=== PATIENT | female | born 1940 | race Caucasian/White ===

== ENCOUNTER 2017-06-09 07:36 | Day surgery (SDC) | payer MEDICARE, OTHER ==
[~2017-06-09 07:36] MED LIST: Cefuroxime 10 MG/ML SYRINGE EYELF SCH; Lidocaine 1% PF 2 ML SDV INJECT SCH; Pilocarpine 4% Ophth Soln 15 ML Bot EYELF SCH
[2017-06-09] MEDS: Polymyxin B/Trimethoprim 10 ML Bottle EYELF SCH ×3 (07:57→10:06)
[2017-06-09] MEDS: Brimonidine 0.2% Ophth Soln 5 ML Bottle EYELF SCH ×3 (08:02→10:06)
[2017-06-09] MEDS: Phenylephrine 2.5% Ophth Soln 2 ML Bot EYELF SCH ×5 (08:07→09:50)
--- NOTE | 2017-06-09 08:16 | PCM.PREANE ---
Preanesthetic Assessment - Anesthesia/Transfusion/Family Hx Anesthesia History: Prior Anesthesia Without Reaction Family History of Anesthesia Reaction: No Transfusion History: No Prior Transfusion(s) Intubation History: Unknown - Review of Systems General: No Symptoms Pulmonary: Shortness of Breath (occas SOB with exertion) Cardiovascular: No Symptoms Gastrointestinal: No Symptoms Neurological: No Symptoms Other: Reports: None - Physical Assessment NPO Status Date: 06/08/17 NPO Status Time: 21:00 Pulse: 54 O2 Sat by Pulse Oximetry: 97 Respiratory Rate: 16 Vital Signs: Last Vital Signs Temp 36.6 C 06/09/17 07:40 Pulse 54 L 06/09/17 07:40 Resp 16 06/09/17 07:40 BP 214/74 H 06/09/17 07:40 Pulse Ox 97 06/09/17 07:40 Height: 1.55 m Weight: 64.41 kg ASA Class: 2 Mental Status: Alert & Oriented x3 Airway Class: Mallampati = 2 Dentition: Reports: Normal Dentition Thyro-Mental Finger Breadths: 3 Mouth Opening Finger Breadths: 3 ROM/Head Extension: Full Lungs: Clear to Auscultation, Normal Respiratory Effort Cardiovascular: Regular Rate, Regular Rhythm - Allergies Allergies/Adverse Reactions: Allergies Allergy/AdvReac Type Severity Reaction Status Date / Time iodine Allergy Rash Verified 06/08/17 13:03 - Acknowledgements Anesthesia Type Planned: MAC Pt an Appropriate Candidate for the Planned Anesthesia: Yes Alternatives and Risks of Anesthesia Discussed w Pt/Guardian: Yes Pt/Guardian Understands and Agrees with Anesthesia Plan: Yes PreAnesthesia Questionnaire HEENT History: Reports: Cataract Cardiovascular History: Reports: High Cholesterol Respiratory History: Reports: SOB (pt states occas SOB with exertion) Gastrointestinal History: Reports: None Genitourinary History: Reports: None Musculoskeletal History: Reports: Osteoarthritis Neurological History: Reports: None Psychiatric History: Reports: Anxiety (untreated) Endocrine/Metabolic History: Reports: Hypothyroidism Hematologic History: Reports: None Immunologic History: Reports: None Oncologic (Cancer) History: Reports: None - Past Surgical History Head Surgeries/Procedures: Reports: None HEENT Surgical History: Reports: None Cardiovascular Surgical History: Reports: None Respiratory Surgical History: Reports: None GI Surgical History: Reports: Appendectomy, Cholecystectomy Female Surgical History: Reports: Hysterectomy Endocrine Surgical History: Reports: None Neurological Surgical History: Reports: None Musculoskeletal Surgical History: Reports: Other (See Below) (foot) Oncologic Surgical History: Reports: None Dermatological Surgical History: Reports: None - SUBSTANCE USE Smoking Status *Q: Former Smoker Recreational Drug Use History: No - HOME MEDS Home Medications: Home Meds Aspirin/Sod Bicarb/Citric Acid [Rizwana-[place] Original] 1 tab PO DAILY 06/08/17 [ History] Fish Oil/[place]-3 Fatty Acids [Fish Oil 1,000 MG] 1 gm PO DAILY 06/08/17 [History ] Levothyroxine [Synthroid] 50 mcg PO DAILY 06/08/17 [History] Lutein 20 mg PO DAILY 06/08/17 [History] Multivitamin [Zoo Chews] 1 tab PO DAILY 06/08/17 [History] - CURRENT (IN HOUSE) MEDS Current Meds: Current Medications Brimonidine Tartrate (Alphagan 0.2% Ophth Soln) 0 ml EYELF ASDIRECTED YOLIE Stop: 06/09/17 18:00 Last Admin: 06/09/17 08:02 Dose: 1 drop Cefuroxime Sodium (Zinacef) 0 mg EYELF ASDIRECTED YOLIE Stop: 06/09/17 18:00 Lidocaine HCl (Xylocaine-Mpf 1%) 10 ml INJECT ASDIRECTED YOLIE Stop: 06/09/17 18:00 Phenylephrine HCl (Omkar-Synephrine 2.5% Ophth Soln) 0 ml EYELF ASDIRECTED YOLIE Stop: 06/09/17 18:00 Last Admin: 06/09/17 08:07 Dose: 1 drop Pilocarpine HCl (Pilocar 4% Ophth Soln) 0 ml EYELF ASDIRECTED YOLIE Stop: 06/09/17 18:00 Polymyxin/Trimethoprim Sulfate (Polytrim Ophth Soln) 0 ml EYELF ASDIRECTED YOLIE Stop: 06/09/17 18:00 Last Admin: 06/09/17 07:57 Dose: 1 drop Tetracaine HCl (Tetracaine 0.5% Steri-Unit Claudine) 0 ml EYELF ASDIRECTED YOLIE Stop: 06/09/17 18:00 Tropicamide (Mydriacyl 1% Ophth Soln) 0 ml EYELF ASDIRECTED YOLIE Stop: 06/09/17 18:00
[2017-06-09] MEDS: Tetracaine HCl/PF 0.5% 4 ML Bottle EYELF SCH ×2 (09:42→09:58)
--- NOTE | 2017-06-09 10:09 | PCM48HPAN ---
Post Anesthesia Note - EVALUATION WITHIN 48HRS OF ANESTHETIC Vital Signs in Normal Range: Yes Patient Participated in Evaluation: Yes Respiratory Function Stable: Yes Airway Patent: Yes Cardiovascular Function Stable: Yes Hydration Status Stable: Yes Pain Control Satisfactory: Yes Nausea and Vomiting Control Satisfactory: Yes Mental Status Recovered: Yes Pulse Rate: 54 SaO2: 96 Resp Rate: 16 Blood Pressure: 187/82
[2017-06-09 10:29] VITALS: BP 184/83
== END 2017-06-09 10:22 | disposition home or self-care (01) ==
LOC: JD.SDS 07:36
PROVIDERS: ATTEND Ophthalmology
DX: H25.813 Combined forms of age-related cataract, bilateral (principal); H40.003 Preglaucoma, unspecified, bilateral; H35.363 Drusen (degenerative) of macula, bilateral; H35.3131 Nonexudative age-related macular degeneration, bilateral, early dry stage; H16.103 Unspecified superficial keratitis, bilateral; H16.223 Keratoconjunctivitis sicca, not specified as Sjogren's, bilateral; I10 Essential (primary) hypertension; M19.90 Unspecified osteoarthritis, unspecified site; E03.9 Hypothyroidism, unspecified; F41.9 Anxiety disorder, unspecified; Z91.041 Radiographic dye allergy status; Z90.49 Acquired absence of other specified parts of digestive tract; Z90.710 Acquired absence of both cervix and uterus; Z87.891 Personal history of nicotine dependence; Z79.82 Long term (current) use of aspirin; Z79.899 Other long term (current) drug therapy
CPT/HCPCS: 66984; C1780; J0697; A9270-GY

== ENCOUNTER 2017-07-07 10:10 | Day surgery (SDC) | payer MEDICARE, OTHER ==
[~2017-07-07 10:10] MED LIST changes: -Cefuroxime 10 MG/ML SYRINGE EYELF SCH; +Cefuroxime 10 MG/ML SYRINGE EYERT SCH; -Pilocarpine 4% Ophth Soln 15 ML Bot EYELF SCH; +Pilocarpine 4% Ophth Soln 15 ML Bot EYERT SCH
[2017-07-07] MEDS: Polymyxin B/Trimethoprim 10 ML Bottle EYERT SCH ×3 (11:15→13:03)
[2017-07-07] MEDS: Brimonidine 0.2% Ophth Soln 5 ML Bottle EYERT SCH ×3 (11:20→13:03)
[2017-07-07] MEDS: Phenylephrine 2.5% Ophth Soln 2 ML Bot EYERT SCH ×5 (11:27→12:44)
--- NOTE | 2017-07-07 11:43 | PCM.PREANE ---
Preanesthetic Assessment - Anesthesia/Transfusion/Family Hx Anesthesia History: Prior Anesthesia Without Reaction Family History of Anesthesia Reaction: No Transfusion History: No Prior Transfusion(s) Intubation History: Unknown - Review of Systems General: No Symptoms Pulmonary: No Symptoms Cardiovascular: No Symptoms Gastrointestinal: No Symptoms Neurological: No Symptoms Other: Reports: Thyroid Problems (hypothyroidism) - Physical Assessment NPO Status Date: 07/06/17 NPO Status Time: 19:00 Pulse: 59 O2 Sat by Pulse Oximetry: 95 Respiratory Rate: 16 Vital Signs: Last Vital Signs Temp 36.7 C 07/07/17 11:03 Pulse 59 L 07/07/17 11:03 Resp 16 07/07/17 11:03 BP 209/77 H 07/07/17 11:03 Pulse Ox 95 07/07/17 11:03 Height: 1.55 m Weight: 66.678 kg ASA Class: 2 Mental Status: Alert & Oriented x3 Airway Class: Mallampati = 2 Dentition: Reports: Normal Dentition Thyro-Mental Finger Breadths: 3 ROM/Head Extension: Full Lungs: Clear to Auscultation, Normal Respiratory Effort Cardiovascular: Regular Rate, Regular Rhythm - Allergies Allergies/Adverse Reactions: Allergies Allergy/AdvReac Type Severity Reaction Status Date / Time iodine Allergy Rash Verified 07/06/17 13:48 - Blood Blood Available: No Product(s) Available: None - Anesthesia Plan Pre-Op Medication Ordered: None - Acknowledgements Anesthesia Type Planned: MAC Pt an Appropriate Candidate for the Planned Anesthesia: Yes Alternatives and Risks of Anesthesia Discussed w Pt/Guardian: Yes Pt/Guardian Understands and Agrees with Anesthesia Plan: Yes PreAnesthesia Questionnaire HEENT History: Reports: Cataract Cardiovascular History: Reports: High Cholesterol Respiratory History: Reports: SOB (pt states occas SOB with exertion) Gastrointestinal History: Reports: None Genitourinary History: Reports: None Musculoskeletal History: Reports: Osteoarthritis Neurological History: Reports: None Psychiatric History: Reports: Anxiety (untreated) Endocrine/Metabolic History: Reports: Hypothyroidism Hematologic History: Reports: None Immunologic History: Reports: None Oncologic (Cancer) History: Reports: None - Past Surgical History Head Surgeries/Procedures: Reports: None HEENT Surgical History: Reports: None Cardiovascular Surgical History: Reports: None Respiratory Surgical History: Reports: None GI Surgical History: Reports: Appendectomy, Cholecystectomy Female Surgical History: Reports: Hysterectomy Endocrine Surgical History: Reports: None Neurological Surgical History: Reports: None Musculoskeletal Surgical History: Reports: Other (See Below) (foot) Oncologic Surgical History: Reports: None Dermatological Surgical History: Reports: None - SUBSTANCE USE Smoking Status *Q: Former Smoker Recreational Drug Use History: No - HOME MEDS Home Medications: Home Meds Aspirin/Sod Bicarb/Citric Acid [Rizwana-[place] Original] 1 tab PO DAILY 06/08/17 [ History] Fish Oil/[place]-3 Fatty Acids [Fish Oil 1,000 MG] 1 gm PO DAILY 06/08/17 [History ] Levothyroxine [Synthroid] 50 mcg PO DAILY 06/08/17 [History] Lutein 20 mg PO DAILY 06/08/17 [History] Multivitamin [Zoo Chews] 1 tab PO DAILY 06/08/17 [History] - CURRENT (IN HOUSE) MEDS Current Meds: Current Medications Brimonidine Tartrate (Alphagan 0.2% Ophth Soln) 0 ml EYERT ASDIRECTED YOLIE Stop: 07/07/17 18:00 Last Admin: 07/07/17 11:20 Dose: 1 drop Cefuroxime Sodium (Zinacef) 0 mg EYERT ASDIRECTED YOLIE Stop: 07/07/17 18:00 Lidocaine HCl (Xylocaine-Mpf 1%) 10 ml INJECT ASDIRECTED YOLIE Stop: 07/07/17 18:00 Phenylephrine HCl (Omkar-Synephrine 2.5% Ophth Soln) 0 ml EYERT ASDIRECTED YOLIE Stop: 07/07/17 18:00 Last Admin: 07/07/17 11:35 Dose: 1 drop Pilocarpine HCl (Pilocar 4% Ophth Soln) 0 ml EYERT ASDIRECTED YOLIE Stop: 07/07/17 18:00 Polymyxin/Trimethoprim Sulfate (Polytrim Ophth Soln) 0 ml EYERT ASDIRECTED YOLIE Stop: 07/07/17 18:00 Last Admin: 07/07/17 11:15 Dose: 1 drop Tetracaine HCl (Tetracaine 0.5% Steri-Unit Claudine) 0 ml EYERT ASDIRECTED YOLIE Stop: 07/07/17 18:00 Tropicamide (Mydriacyl 1% Ophth Soln) 0 ml EYERT ASDIRECTED YOLIE Stop: 07/07/17 18:00 Last Admin: 07/07/17 11:32 Dose: 1 drop
[2017-07-07] MEDS: Tetracaine HCl/PF 0.5% 4 ML Bottle EYERT SCH ×2 (12:32→12:52)
--- NOTE | 2017-07-07 13:08 | PCM48HPAN ---
Post Anesthesia Note - EVALUATION WITHIN 48HRS OF ANESTHETIC Vital Signs in Normal Range: Yes Patient Participated in Evaluation: Yes Respiratory Function Stable: Yes Airway Patent: Yes Cardiovascular Function Stable: Yes Hydration Status Stable: Yes Pain Control Satisfactory: Yes Nausea and Vomiting Control Satisfactory: Yes Mental Status Recovered: Yes Pulse Rate: 59 SaO2: 99 Resp Rate: 16 Temperature: 36 C Blood Pressure: 183/75
[2017-07-07 13:29] VITALS: BP 190/96
== END 2017-07-07 13:15 | disposition home or self-care (01) ==
LOC: JD.SDS 10:10
PROVIDERS: ATTEND Ophthalmology
DX: H26.9 Unspecified cataract (principal); E03.9 Hypothyroidism, unspecified; Z79.82 Long term (current) use of aspirin; Z79.899 Other long term (current) drug therapy; Z87.891 Personal history of nicotine dependence; Z96.1 Presence of intraocular lens
CPT/HCPCS: 66984; J0697; A9270-GY

== ENCOUNTER 2019-05-24 15:10 | Emergency (ER) | payer MEDICARE, OTHER ==
--- NOTE | 2019-05-24 15:40 | EDM.PDOC ---
ED HPI GENERAL MEDICAL PROBLEM - General Chief Complaint: Chest Pain Stated Complaint: CHEST PAIN X 4 DAYS Time Seen by Provider: 05/24/19 15:19 Source of Information: Reports: Patient, RN Notes Reviewed - History of Present Illness INITIAL COMMENTS - FREE TEXT/NARRATIVE: 78-year-old female comes in with intermittent chest pain upper mid chest without radiation. She has been having this off and on for several weeks but has become more severe and longer duration over the past day or 2. She states this feels like an ache or spasm of her anterior mid chest that may last just a few minutes with several episodes yesterday morning of brief duration. At about 1:30 AM 12 hours ago she had an episode that awakened her from sleep and lasted about a half an hour before going away. She then had an episode at noon today around 4 hours ago that lasted about an hour or more before going away. No chest pain at time of exam. She has not been short of breath. No abdominal pain nausea vomiting or diaphoresis. She does have history of hypertension but no history of coronary artery disease, diabetes. She does not smoke. She has not been recently ill. - Related Data Allergies Allergy/AdvReac Type Severity Reaction Status Date / Time iodine Allergy Rash Verified 07/06/17 13:48 Home Meds: Home Meds Aspirin/Sod Bicarb/Citric Acid [Rizwana-[place] Original] 1 tab PO DAILY PRN [History] Fish Oil/[place]-3 Fatty Acids [Fish Oil 1,000 MG] 1 gm PO DAILY 06/08/17 [History ] Levothyroxine [Synthroid] 50 mcg PO DAILY 06/08/17 [History] Lutein 20 mg PO DAILY 06/08/17 [History] Multivitamin [Zoo Chews] 1 tab PO DAILY 06/08/17 [History] Metoprolol Succinate [Toprol XL] 12.5 mg PO DAILY 05/24/19 [History] Past Medical History HEENT History: Reports: Cataract Cardiovascular History: Reports: High Cholesterol Respiratory History: Reports: SOB Gastrointestinal History: Reports: None Genitourinary History: Reports: None Musculoskeletal History: Reports: Osteoarthritis Neurological History: Reports: None Psychiatric History: Reports: Anxiety Endocrine/Metabolic History: Reports: Hypothyroidism Hematologic History: Reports: None Immunologic History: Reports: None Oncologic (Cancer) History: Reports: None - Past Surgical History Head Surgeries/Procedures: Reports: None HEENT Surgical History: Reports: None Cardiovascular Surgical History: Reports: None Respiratory Surgical History: Reports: None GI Surgical History: Reports: Appendectomy, Cholecystectomy Female Surgical History: Reports: Hysterectomy Endocrine Surgical History: Reports: None Neurological Surgical History: Reports: None Musculoskeletal Surgical History: Reports: Other (See Below) Oncologic Surgical History: Reports: None Dermatological Surgical History: Reports: None Social & Family History - Tobacco Use Smoking Status *Q: Never Smoker Second Hand Smoke Exposure: No - Caffeine Use Caffeine Use: Reports: Coffee - Recreational Drug Use Recreational Drug Use: No - Living Situation & Occupation Living situation: Reports: , Alone Occupation: Retired ED ROS GENERAL - Review of Systems Review Of Systems: See Below Constitutional: Denies: Fever, Chills, Diaphoresis HEENT: Reports: No Symptoms Respiratory: Denies: Shortness of Breath Cardiovascular: Denies: Chest Pain GI/Abdominal: Denies: Abdominal Pain Musculoskeletal: Denies: Neck Pain, Shoulder Pain, Arm Pain, Back Pain, Leg Pain Skin: Reports: No Symptoms Neurological: Reports: No Symptoms ED EXAM, GENERAL - Physical Exam Exam: See Below General Appearance: Alert, No Apparent Distress Eye Exam: Bilateral Eye: PERRL Throat/Mouth: Normal Inspection, Normal Oropharynx Neck: Normal Inspection, Supple Respiratory/Chest: No Respiratory Distress, Lungs Clear, Normal Breath Sounds Cardiovascular: Regular Rate, Rhythm GI/Abdominal: Soft, Non-Tender Back Exam: No: CVA Tenderness (L), CVA Tenderness (R) Extremities: Normal Inspection. No: Pedal Edema, Leg Pain Neurological: Alert, Oriented, No Motor/Sensory Deficits Skin Exam: Warm, Dry, Normal Color EKG INTERPRETATION EKG Date: 05/24/19 Rhythm: NSR [place]: Normal P-Wave: Present QRS: Other (Q waves V2 and V3) ST-T: Elevated (Mild ST elevation V2) Course - Vital Signs Last Recorded V/S: Last Vital Signs Temp 97 F 05/24/19 15:19 Pulse 65 05/24/19 19:15 Resp 20 05/24/19 19:15 BP 179/99 H 05/24/19 19:15 Pulse Ox 97 05/24/19 19:15 - Orders/Labs/Meds Labs: Laboratory Tests 05/24/19 05/24/19 Range/Units 16:07 16:07 WBC 7.68 (3.98-10.04) K/mm3 RBC 4.91 (3.98-5.22) M/mm3 Hgb 13.9 (11.2-15.7) gm/dl Hct 42.7 (34.1-44.9) % MCV 87.0 (79.4-94.8) fl MCH 28.3 (25.6-32.2) pg MCHC 32.6 (32.2-35.5) g/dl RDW Std Deviation 48.8 H (36.4-46.3) fL Plt Count 295 D (182-369) K/mm3 MPV 10.6 (9.4-12.3) fl Neut % (Auto) 69.1 (34.0-71.1) % Lymph % (Auto) 21.7 (19.3-51.7) % [place] % (Auto) 7.9 (4.7-12.5) % Eos % (Auto) 0.8 (0.7-5.8) Baso % (Auto) 0.4 (0.1-1.2) % Neut # (Auto) 5.30 (1.56-6.13) K/mm3 Lymph # (Auto) 1.67 (1.18-3.74) K/mm3 [place] # (Auto) 0.61 H (0.24-0.36) K/mm3 Eos # (Auto) 0.06 (0.04-0.36) K/mm3 Baso # (Auto) 0.03 (0.01-0.08) K/mm3 Sodium 141 (136-145) mEq/L Potassium 3.9 (3.5-5.1) mEq/L Chloride 106 (98-107) mEq/L Carbon Dioxide 26 (21-32) mEq/L Anion Gap 12.9 (5-15) BUN 28 H (7-18) mg/dL Creatinine 1.3 H (0.55-1.02) mg/dL Est Cr Clr Drug Dosing 26.03 mL/min Estimated GFR (MDRD) 40 (>60) mL/min BUN/Creatinine Ratio 21.5 H (14-18) Glucose 127 H (83-115) mg/dL Calcium 9.5 (8.5-10.1) mg/dL Total Bilirubin 0.4 (0.2-1.0) mg/dL AST 26 (15-37) U/L ALT 27 (14-59) U/L Alkaline Phosphatase 78 (46-116) U/L Troponin I 0.687 H* (0.00-0.056) ng/mL Total Protein 6.8 (6.4-8.2) g/dl Albumin 3.2 L (3.4-5.0) g/dl Globulin 3.6 gm/dL Albumin/Globulin Ratio 0.9 L (1-2) TSH 3rd Generation 7.797 H (0.358-3.74) uIU/mL Meds: Medications Discontinued Medications Generic Name Dose Route Start Last Admin Trade Name Freq PRN Reason Stop Dose Admin Aspirin 324 mg 05/24/19 16:50 05/24/19 17:02 Aspirin PO 05/24/19 16:51 324 mg ONETIME ONE Administration Heparin Sodium (Porcine) 4,000 units 05/24/19 17:09 05/24/19 17:46 Heparin Sodium IVPUSH 05/24/19 17:10 Not Given ONETIME ONE Heparin Sodium (Porcine) 4,000 units 05/24/19 17:10 05/24/19 17:43 Heparin Sodium IVPUSH 05/24/19 17:11 4,000 units .BOLUS ONE Administration Heparin Sodium/Dextrose 25,000 units in 500 mls @ 16.003 mls/hr 05/24/19 17: 15 05/24/19 17:44 Heparin 25,000 Units In D5w 500 Ml IV 12 units/kg/hr TITRATE YOLIE 16.003 mls/hr Administration Protocol 12 UNITS/KG/HR Sodium Chloride 10 ml 05/24/19 15:46 Saline Flush FLUSH ASDIRECTED PRN Keep Vein Open Sodium Chloride 10 ml 05/24/19 17:03 Saline Flush FLUSH ASDIRECTED PRN Keep Vein Open - Re-Assessments/Exams Free Text/Narrative Re-Assessment/Exam: 05/24/19 17:52. Troponin did come back elevated at 0.687. She had one brief episode of chest pain while awaiting lab work but pain-free at time of initial exam and pain-free at time of repeat exam. Chest x-ray normal, not in failure. As noted EKG shows Q waves anteriorly, very mild ST elevation V2 mild ST depression V4, 5 and 6. Patient was given aspirin. She has been given heparin 4000 unit bolus on a 1000 unit drip. She will be transferred ground ambulance to [facility] Dr. Dayan Alva accepting Hospitalist. Departure - Departure Time of Disposition: 17:25 Disposition: DC/Tfer to [facility] 02 Reason for Transfer *Q: Other Condition: Fair Clinical Impression: Acute coronary syndrome Referrals: Turner Russell MD [Primary Care Provider] - Forms: ED Department Discharge Sepsis Event Note - Evaluation Sepsis Screening Result: No Definite Risk - Focused Exam Date Exam was Performed: 05/26/19 Time Exam was Performed: 11:18
[2019-05-24] MEDS ORDERED: Sodium Chloride 0.9% 10 ML Syringe FLUSH PRN ×2 (15:46→17:03)
[2019-05-24] MEDS ORDERED: Aspirin 81 MG Tab.Chew PO ONE (16:50)
[2019-05-24] MEDS ORDERED: Heparin Sodium 5,000 Units/ML Vial IVPUSH ONE ×2 (17:09→17:10)
[2019-05-24] MEDS ORDERED: Heparin Sodium/D5W 25,000 UNITS/500 ML BAG IV SCH (17:15)
[2019-05-24 19:57] VITALS: BP 179/99; PULSE 65
--- NOTE | 2019-05-25 07:32 | CR ---
Chest: Portable view of the chest was obtained. Comparison: Prior chest x-ray of 01/05/15. Heart is enlarged. Upper mediastinum is within normal limits for portable technique. Lungs are clear with no acute parenchymal change. Bony structures show mild scoliosis within the spine. Impression: 1. Cardiomegaly. 2. Nothing acute is appreciated. Diagnostic code #2 Study was dictated in [place] Standard Time
== END 2019-05-24 19:20 ==
LOC: JD.ED 15:10
DX: I24.9 Acute ischemic heart disease, unspecified (principal); E78.00 Pure hypercholesterolemia, unspecified; E03.9 Hypothyroidism, unspecified; Z91.048 Other nonmedicinal substance allergy status; Z79.82 Long term (current) use of aspirin; Z79.899 Other long term (current) drug therapy; Z90.49 Acquired absence of other specified parts of digestive tract; Z90.710 Acquired absence of both cervix and uterus
CPT/HCPCS: 36415; 71045; 80053; 84443; 84484; 85025; 93005; 96365; 96366; 99285; A9270; J1644; 93010; 99284